=== PATIENT | male | born 1960 | race Native Hawaiian/Other Pacific Islander ===

== ENCOUNTER 2021-01-10 15:24 | Emergency (ER) | payer BC ==
[~2021-01-10] VITALS: Ht 172.7 cm; Wt 72.6 kg
[2021-01-10 15:35] VITALS: TEMP 98
[2021-01-10 15:52] LABS: PLATELET COUNT 345 K/uL (142-355)
[2021-01-10 16:02] LABS: POTASSIUM 3.6 mmol/L (3.6-5.2); SODIUM 139 mmol/L (136-145)
[2021-01-10 21:00] VITALS: BP 119/52
== END 2021-01-10 21:15 | disposition home or self-care (01) ==
LOC: ED 15:24
PROVIDERS: Family Medicine
PROC: 0T9B70Z Drainage of Bladder with Drainage Device, Via Natural or Artificial Opening (ICD-10-PCS; principal; 2021-01-10)
DX: F41.8 Other specified anxiety disorders (principal); E86.0 Dehydration; N39.0 Urinary tract infection, site not specified
CPT/HCPCS: 51702; 80053; 80307; 81000; 82550; 82553; 83605; 84484; 85027; 87040; 93005; 96360; 96361; 96365; 96375; 99284; J0696; J2060; Q9963